=== PATIENT | female | born 1990 | race Caucasian/White ===

== ENCOUNTER 2017-05-08 12:25 | Outpatient (CLI) | payer MEDICAID ==
[~2017-05-08] VITALS: Ht 162.6 cm; Wt 80.3 kg
[2017-05-08 12:37] VITALS: BP 110/57; PULSE 70; Ht 162.6 cm; Wt 80.3 kg
[2017-05-08] MEDS ORDERED: PRENAT PO (12:38)
--- NOTE | 2017-05-08 13:21 | RADRPT ---
PROCEDURE: US OB biophysical profile. CLINICAL INDICATION: evaluation, bee sting TECHNIQUE: Multiple sonographic images of the pelvis were obtained. The images were reviewed on a PACS workstation. COMPARISON: No prior studies are available for comparison. FINDINGS: There is a single viable intrauterine gestation. Cardiac activity is present with 143 beats per min [place]. There is a vertex presentation. The placenta is anterior. There is no evidence of placental abruption. There is a normal amount of amniotic fluid with an MAKENZIE = 10.1 cm. Biophysical profile: movement 2/2 tone 2/2. breathing 2/2 MAKENZIE 2/2 Total 06/17 RPTAT: AA . IMPRESSION: Normal biophysical profile. Physician Marta Date Time Electronically viewed and signed by Physician Marta on 05/08/2017 13:21 /
== END 2017-05-08 13:37 | disposition home or self-care (01) ==
LOC: OBT 12:25 → L-D 12:25 → OBT 13:37
PROVIDERS: ATTEND Obstetrics & Gynecology
DX: O26.893 Other specified pregnancy related conditions, third trimester (principal); Z3A.39 39 weeks gestation of pregnancy
CPT/HCPCS: 76818; Z7500; G0463

== ENCOUNTER 2017-05-21 09:45 | Inpatient (IN) | payer MEDICAID ==
[~2017-05-21] VITALS: Ht 165.1 cm; Wt 80.3 kg
[~2017-05-21 09:45] MED LIST: OXYTOCIN 30 UNITS/LR 500 ML BAG IV ONE; PRENAT PO
[2017-05-21 10:19] VITALS: Ht 165.1 cm; Wt 80.3 kg
[2017-05-21 10:20] VITALS: BP 115/66; PULSE 64; RESP 18
[2017-05-21] MEDS ORDERED: CARBOPROST 250 MCG INJ IM PRN ×2 (10:30→17:30)
[2017-05-21] MEDS ORDERED: OXYTOCIN 30 UNITS/LR 500 ML IV PRN ×2 (10:30→17:30)
[2017-05-21] MEDS ORDERED: MISOPROSTOL 200 MCG TAB PR PRN ×2 (10:30→17:30)
[2017-05-21] MEDS ORDERED: OXYTOCIN 30 UNITS/LR 500 ML IV SCH (10:30)
[2017-05-21] MEDS ORDERED: CEFAZOLIN 2 GM/50 ML (PMX) 50 ML IV SCH (10:30)
[2017-05-21] MEDS ORDERED: METHYLERGONOVINE 0.2 MG INJ IM PRN ×2 (10:30→17:30)
[2017-05-21 10:31] LABS: ADD SCAN DIFF NO
[2017-05-21 10:34] LABS: BASOPHILS % 0.4 % (0.0-2.0); EOSINOPHILS # 0.1 10^3/ul (0.0-0.5); EOSINOPHILS % 0.9 % (0.0-7.0); HEMATOCRIT 39.6 % (37.0-47.0); HEMOGLOBIN 13.9 g/dl (12.0-16.0); LYMPHOCYTES # 1.6 10^3/ul (0.8-2.9); LYMPHOCYTES % 20.7 % (15.0-51.0); MEAN CORPUSCULAR HGB CONC 35.1 g/dl (32.0-37.0); MEAN CORPUSCULAR VOLUME 91.2 fl (82.0-101.0); MEAN PLATELET VOLUME 11.4 fl (7.4-10.4); MONOCYTE # 0.5 10^3/ul (0.3-0.9); MONOCYTES % 5.7 % (0.0-11.0); NEUTROPHIL # 5.7 10^3/ul (1.6-7.5); NEUTROPHILS % 71.7 % (39.0-77.0); PLATELET COUNT 201 10^3/UL (140-415); RED BLOOD COUNT 4.34 10^6/ul (4.20-5.40); RED CELL DISTRIBUTION WIDTH 12.6 % (11.5-14.5); WHITE BLOOD COUNT 7.9 10^3/ul (4.8-10.8)
[2017-05-21 10:54] LABS: INR 0.92; PROTIME 12.4 Sec (12.2-14.2)
[2017-05-21] MEDS: LACTATED RINGER'S 1,000 ML IV SCH ×3 (10:57→12:27)
[2017-05-21] MEDS ORDERED: CITRIC ACID/NA CITRATE 30 ML CUP ONE (11:18)
[2017-05-21] MEDS ORDERED: ONDANSETRON 4 MG INJ ONE (11:18)
[2017-05-21] MEDS ORDERED: ONDANSETRON 4 MG INJ IV ONE (11:30)
[2017-05-21] MEDS ORDERED: CITRIC ACID/NA CITRATE 30 ML CUP PO ONE (11:30)
[2017-05-21] MEDS ORDERED: PHENYLephrine (100 MCG/ML) 5ML SYG ONE ×2 (12:47→13:23)
[2017-05-21] MEDS ORDERED: KETOROLAC 30 MG INJ ONE (12:48)
[2017-05-21] MEDS ORDERED: morphine SULFATE/PF (10 MG/10 ML) INJ ONE (12:48)
[2017-05-21] MEDS ORDERED: OXYTOCIN 10 UNIT INJ ONE (12:48)
[2017-05-21] MEDS ORDERED: METOCLOPRAMIDE 10 MG INJ ONE (12:48)
[2017-05-21] MEDS ORDERED: DEXAMETHASONE 4 MG/ML 1 ML INJ ONE (12:48)
[2017-05-21 12:50] LABS: BARBITURATES Negative (NEGATIVE); BENZODIAZEPINES Negative (NEGATIVE); CANNABINOIDS Negative (NEGATIVE); COCAINE Negative (NEGATIVE); OPIATES Negative (NEGATIVE)
[2017-05-21] MEDS ORDERED: KETOROLAC 30 MG INJ IV PRN (13:30)
[2017-05-21] MEDS ORDERED: NALBUPHINE HCL (10 MG/1 ML) INJ IV PRN (13:30)
[2017-05-21] MEDS ORDERED: morphine 2 MG INJ IV PRN (13:30)
[2017-05-21] MEDS ORDERED: NALOXONE (0.4 MG/ML) INJ IV PRN (13:30)
[2017-05-21] MEDS ORDERED: DIPHENHYDRAMINE 50 MG INJ IV PRN (13:30)
[2017-05-21] MEDS ORDERED: morphine 4 MG/ML VIAL IV PRN (13:30)
[2017-05-21] MEDS ORDERED: ACETAMINOPHEN 500 MG TAB PO PRN (13:30)
[2017-05-21] MEDS ORDERED: TRIMETHOBENZAMIDE 100 MG/ML VIAL IM PRN (13:30)
[2017-05-21] MEDS ORDERED: HYDROmorphONE 1 MG/ML SYG IV PRN ×2 (13:30)
[2017-05-21] MEDS ORDERED: HYDROCODONE/APAP (5/325) TAB PO PRN (13:30)
[2017-05-21] MEDS ORDERED: ONDANSETRON 4 MG INJ IV PRN (13:30)
--- NOTE | 2017-05-21 14:10 | OPPN ---
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10 history of previous no other hospitalization for medical or surgical condition Review of system within Physical examination 5 feet 5, 173 pounds Temperature 98 pulse of 870 respiration blood pressure 121/70 Head ears nose and throat negative Neck supple no thyromegaly Lungs clear to P&A Heart normal sinus rhythm no murmur Abdomen fundal height 37 cm from symphysis pubis heart rate category 1 Pelvic exam i deferred Extremities no edema no varicosities Impression intrauterine at 39 history of previous patient declined vaginal delivery after complication of the operation including but not limited to bowel and bladder injury infection hemorrhage or hematoma and she is willing to go ahead with this procedure DANIELLA PORTER MD May 21, 2017 14:10
--- NOTE | 2017-05-21 14:19 | HP ---
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10 history of total of 2 with one previous section Allergies denies allergy to any known medication Social habit denies a smoking or drinking Review of system within normal Head ears nose and throat negative Neck supple no thyromegaly Lungs clear to P&A Heart normal sinus rhythm no murmur Breasts status compatible with state of the no abnormal palpable mass no nipple retraction no axillary adenopathy Abdomen fundal height 37 cm from symphysis pubis heart rate category Pelvic exam deferred Extremities no edema no varicosities Impression intrauterine at 39 weeks gestation history of previous section declined trial of labor for vaginal delivery post She is being prepared to undergo a repeat , patient is aware of complication of the surgery including but not limited to bowel and bladder injury infection hemorrhage and hematoma and she is willing to go ahead with this procedure Estimated Due Date: May 27, 2017 : 2 Para: 1 Care: Good Care Ultrasounds: Normal mid trimester US Obstetrical Complications: None Medical Complications: None Past Family/Social History * Past Medical, Surgical, Family and Obstetric Histories reviewed from chart. Rubella: immune RPR/VDRL: Negative GBS Status: Negative HBsAG: Negative OB Admission Exam Vital Signs Vital Signs Vital Signs Date Time Temp Pulse Resp B/P Pulse Ox O2 Delivery O2 Flow Rate FiO2 05/21/17 10:20 97.5 64 18 115/66 Room Air Last 72 hours Lab Results CBC & BMP 05/21/17 10:14 OB Assessment/Plan Reason for admission: other (Repeat ) DANIELLA PORTER MD May 21, 2017 14:19
--- NOTE | 2017-05-21 14:30 | OPR ---
Operative Report Planned Procedure Procedure date May 21, 2017 Procedure Description Under satisfactory spinal [] anesthesia, the patient was prepped and draped and placed in a supine position, tilted to the left. Pfannenstiel incision was made , carried through the subcutaneous tissue. Bleeders brought under control with electrocautery. Fascia incised to the length of the incision. Rectus muscles from the fascia, divided midline. Peritoneum exposed, entered through a transverse incision. Exploration of abdomen revealed gravid uterus at term normal-appearing tubes and ovaries. Bladder flap was developed. Transverse incision was made in the lower segment of the uterus. Amniotic sac ruptured. Clear [] amniotic fluid noted light baby boy was delivered from unengaged vertex presentation. [] Nasal oropharyngeal suction was performed. The baby was handed to the team for immediate attention. Patient received 20 units of Pitocin placenta was delivered manually intact. Uterine cavity cleaned with wet sponge and drainage established. Uterus closed in 2 layers using [] Monocryl #1 in continuous fashion. Peritoneal cavity irrigated with warm saline. Sponge, needle and instrument count reported to be correct. Abdominal peritoneum closed with 2-0 chromic catgut [] continuously. Rectus muscle approximated with [] interrupted 2-0 chromic catgut. Fascia closed with [ ] #1 PDS, and skin closed with nsorb. Estimated blood loss 6-700]mL. Urine bag contained [200]mL of clear urine patient tolerated procedure well and transferred to recovery room in good condition Post-Procedure Findings: Live Baby [], Apgars [] and [9], weight [], position occiput transverse [], [] presentation vertex Complications: None Pt Condition post procedure: stable Disposition: other (Recovery) Physician Certification I, the undersigned physician, hereby certify that I have discussed the procedure described in this consent form with this patient (or the patient's legal commissary representative), including: * The risk and benefits of the procedure; * Any adverse reactions that may reasonably be expected to occur; * Any alternative efficacious methods of treatment which may be medically viable ; * The potential problems that may occur during recuperation; * Potential for blood transfusion and associated risks/benefits; and * Any research or economic interest I may have regarding this treatment. I further certify that the patient/legally responsible person was encouraged to ask question and that all questions were answered. DANIELLA PORTER MD May 21, 2017 14:29
[2017-05-21 17:00] VITALS: BP 101/53; PULSE 59; RESP 16
[2017-05-21] MEDS ORDERED: CEFAZOLIN 1 GM/50 ML (PMX) 50 ML IVPB SCH ×2 (17:30→21:30)
[2017-05-21] MEDS ORDERED: OXYCODONE/ACETAMINOPHEN (5/325) TAB PO PRN (17:30)
[2017-05-21] MEDS ORDERED: LANOLIN 7 GM TUBE TOP PRN (17:30)
[2017-05-21] MEDS ORDERED: ACETAMINOPHEN/CODEINE #3 TAB PO PRN ×2 (17:30)
[2017-05-21] MEDS: IBUPROFEN 600 MG TAB PO SCH ×2 (18:00→23:56)
[2017-05-21] MEDS: OXYTOCIN 30 UNITS/LR 500 ML IV SCH ×2 (18:16→23:01)
[2017-05-21 20:00] VITALS: BP 97/56; PULSE 68; RESP 18
[2017-05-21] MEDS: SENNA/DOCUSATE NA (8.6MG/50MG) TAB PO SCH (21:00)
[2017-05-22] VITALS: BP 102/54; PULSE 58; RESP 20
--- NOTE | 2017-05-22 01:42 | OPPN ---
Date/Time of Note Date/Time of Note DATE: 05/22/17 TIME: 01:41 Post-Anesthesia Notes Post-Anesthesia Note Last documented vital signs Vital Signs Date Time Temp Pulse Resp B/P Pulse Ox O2 Delivery O2 Flow Rate FiO2 05/22/17 00:00 98.1 58 20 102/54 Room Air Activity: WNL Respiratory function: WNL Cardiovascular function: WNL Mental status: Baseline Pain reasonably controlled: Yes Hydration appropriate: Yes Nausea/Vomiting absent: Yes RYLIE RANDALL MD May 22, 2017 01:41
[2017-05-22] MEDS: OXYTOCIN 30 UNITS/LR 500 ML IV SCH (03:23)
[2017-05-22 04:00] VITALS: BP 99/54; PULSE 64; RESP 18
[2017-05-22] MEDS ORDERED: LACTATED RINGER'S 1,000 ML IV SCH (06:00)
[2017-05-22] MEDS: IBUPROFEN 600 MG TAB PO SCH ×4 (06:00→23:40)
[2017-05-22 07:50] VITALS: BP 99/51; PULSE 69; RESP 20
[2017-05-22 08:33] LABS: ADD SCAN DIFF NO
[2017-05-22 08:43] LABS: BASOPHILS % 0.1 % (0.0-2.0); EOSINOPHILS % 0.1 % (0.0-7.0); HEMATOCRIT 34.7 % (37.0-47.0); HEMOGLOBIN 11.7 g/dl (12.0-16.0); LYMPHOCYTES # 1.3 10^3/ul (0.8-2.9); MEAN CORPUSCULAR HEMOGLOBIN 31.4 pg (29.0-33.0); MEAN CORPUSCULAR HGB CONC 33.7 g/dl (32.0-37.0); MEAN PLATELET VOLUME 11.7 fl (7.4-10.4); MONOCYTE # 0.8 10^3/ul (0.3-0.9); MONOCYTES % 6.5 % (0.0-11.0); NEUTROPHIL # 9.8 10^3/ul (1.6-7.5); NEUTROPHILS % 81.6 % (39.0-77.0); PLATELET COUNT 206 10^3/UL (140-415); RED BLOOD COUNT 3.73 10^6/ul (4.20-5.40); RED CELL DISTRIBUTION WIDTH 12.8 % (11.5-14.5); WHITE BLOOD COUNT 12.1 10^3/ul (4.8-10.8)
[2017-05-22] MEDS: SENNA/DOCUSATE NA (8.6MG/50MG) TAB PO SCH ×2 (09:20→20:43)
[2017-05-22] MEDS: PRENATAL VITAMIN PO SCH (09:20)
[2017-05-22 11:57] VITALS: BP 90/51; PULSE 67; RESP 20
--- NOTE | 2017-05-22 12:32 | PN ---
Date/Time of Note Date/Time of Note DATE: 05/22/17 TIME: 12:31 OB Subjective Subjective Subjective Post repeat day 1 Afebrile vital signs stable abdomen soft bowel sounds present lochia moderate incision dry extremities ambulation encouraged Laboratory Tests Test 05/22/17 08:00 White Blood Count 12.110^3/ul Red Blood Count 3.7310^6/ul Hemoglobin 11.7g/dl Hematocrit 34.7% Mean Corpuscular Volume 93.0fl Mean Corpuscular Hemoglobin 31.4pg Mean Corpuscular Hemoglobin Concent 33.7g/dl Red Cell Distribution Width 12.8% Platelet Count 75796^3/UL Mean Platelet Volume 11.7fl Neutrophils % 81.6% Lymphocytes % 11.0% Monocytes % 6.5% Eosinophils % 0.1% Basophils % 0.1% Nucleated Red Blood Cells % 0.0/100WBC Neutrophils # 9.810^3/ul Lymphocytes # 1.310^3/ul Monocytes # 0.810^3/ul Eosinophils # 0.010^3/ul Basophils # 0.010^3/ul Nucleated Red Blood Cells # 0.010^3/ul Current Medications Medications (Trade) Dose Ordered Sig/Margarita Route PRN Reason Start Time Stop Time Status Last Admin Dose Admin Lactated Ringer's 1,000 ml @ 125 mls/hr Q8H IV 05/21/17 10:22 05/21/17 17:25 DC 05/21/17 12:27 Cefazolin Sodium/ Dextrose 50 ml @ 100 mls/hr ONCE IV 05/21/17 10:30 05/21/17 17:25 DC Oxytocin/Lactated Ringer's 500 ml @ 125 mls/hr ONCE IV 05/21/17 10:30 05/21/17 17:26 DC 05/21/17 14:17 Oxytocin/Lactated Ringer's 500 ml @ 0 mls/hr ONCE PRN IV For Hemorrhage Management 05/21/17 10:30 05/21/17 17:26 DC Methylergonovine Maleate (Methergine) 0.2 mg ONCE PRN IM VAGINAL BLEEDING 05/21/17 10:30 05/21/17 17:26 DC Carboprost Tromethamine (Hemabate) 250 mcg ONCE PRN IM VAGINAL BLEEDING 05/21/17 10:30 05/21/17 17:26 DC Misoprostol (Cytotec) 1,000 mcg ONCE PRN UT VAGINAL BLEEDING 05/21/17 10:30 05/21/17 17:26 DC Citric Acid/ Sodium Citrate (Bicitra) 30 ml STK-MED ONCE .ROUTE 05/21/17 11:18 05/21/17 11:19 DC Ondansetron HCl (Zofran Inj) 4 mg STK-MED ONCE .ROUTE 05/21/17 11:18 05/21/17 11:19 DC Ondansetron HCl (Zofran Inj) 4 mg pre-procedure ONCE IV 05/21/17 11:30 05/21/17 11:31 DC 05/21/17 11:28 Citric Acid/ Sodium Citrate (Bicitra) 30 ml PRE-OP ONCE PO 05/21/17 11:30 05/21/17 11:31 DC 05/21/17 11:28 Phenylephrine HCl (Hemant-Synephrine Inj Syg) 500 mcg STK-MED ONCE .ROUTE 05/21/17 12:47 05/21/17 12:48 DC Metoclopramide HCl (Reglan) 10 mg STK-MED ONCE .ROUTE 05/21/17 12:48 05/21/17 12:49 DC Oxytocin (Oxytocin) 10 units STK-MED ONCE .ROUTE 05/21/17 12:48 05/21/17 12:49 DC Morphine Sulfate (Duramorph) 10 mg STK-MED ONCE .ROUTE 05/21/17 12:48 05/21/17 12:49 DC Ketorolac Tromethamine (Toradol) 30 mg STK-MED ONCE .ROUTE 05/21/17 12:48 05/21/17 12:49 DC Dexamethasone (Decadron) 4 mg STK-MED ONCE .ROUTE 05/21/17 12:48 05/21/17 12:49 DC Hydromorphone HCl (Dilaudid) 0.2 mg Q2H PRN IV PAIN LEVEL 1-5 05/21/17 13:30 Hydromorphone HCl (Dilaudid) 0.4 mg Q2H PRN IV PAIN LEVEL 6-10 05/21/17 13:30 Morphine Sulfate (morphine) 2 mg Q2H PRN IV PAIN LEVEL 1-5 05/21/17 13:30 Morphine Sulfate (morphine) 4 mg Q2H PRN IV PAIN LEVEL 6-10 05/21/17 13:30 Ketorolac Tromethamine (Toradol) 30 mg Q6H PRN IV PAIN LEVEL 6-10 05/21/17 13:30 05/24/17 13:29 05/22/17 09:20 Acetaminophen (Tylenol Tab) 500 mg Q4H PRN PO PAIN LEVEL 1-3 05/21/17 13:30 Acetaminophen/ Hydrocodone Bitart (Inez (5/325)) 1 tab Q4H PRN PO PAIN LEVEL 4-6 05/21/17 13:30 Diphenhydramine HCl (Benadryl) 25 mg Q4H PRN IV PRURITUS 05/21/17 13:30 Nalbuphine HCl (Nubain) 10 mg Q4H PRN IV PRURITUS 05/21/17 13:30 05/21/17 17:26 DC Ondansetron HCl (Zofran Inj) 4 mg Q6H PRN IV NAUSEA AND/OR VOMITING 05/21/17 13:30 05/21/17 15:43 Trimethobenzamide HCl (Tigan) 200 mg Q6H PRN IM NAUSEA AND/OR VOMITING 05/21/17 13:30 05/21/17 17:26 DC Naloxone HCl (Narcan) 0.2 mg Q2M PRN IV FOR RESP RATE 8 OR LESS 05/21/17 13:30 Miscellaneous Information (* Miscellaneous Pharmacy Order) DURAMORPH: 0.2 MG SPI... GIVEN NEURAXIAL XX 05/21/17 13:30 05/21/17 17:26 DC Phenylephrine HCl (Hemant-Synephrine Inj Syg) 500 mcg STK-MED ONCE .ROUTE 05/21/17 13:23 05/21/17 13:24 DC Acetaminophen/ Codeine Phosphate (Tylenol No.3) 1 tab Q4H PRN PO PAIN LEVEL 4-6 05/21/17 17:30 Acetaminophen/ Codeine Phosphate (Tylenol No.3) 2 tab Q4H PRN PO PAIN LEVEL 7-10 05/21/17 17:30 Oxycodone/ Acetaminophen (Percocet (5/ 325)) 1 tab Q4H PRN PO PAIN LEVEL 4-6 05/21/17 17:30 Oxycodone/ Acetaminophen (Percocet (5/ 325)) 2 tab Q4H PRN PO PAIN LEVEL 7-10 05/21/17 17:30 Ibuprofen (Motrin) 600 mg Q6 PO 05/21/17 18:00 Simethicone (Mylicon) 160 mg Q8H PRN PO DISTENSION/GAS/BLOATING 05/21/17 17:30 Senna/Docusate Sodium (Senokot-S) 1 tab BID PO 05/21/17 21:00 05/22/17 09:20 Lanolin (Zba-S-Tdsyel) 1 applic BEDSIDE MEDICATION PRN TOP BEDSIDE FOR JOE TO NIPPLES 05/21/17 17:30 Diphtheria/ Tetanus/Acell Pertussis 0.5 ml 0.5 ml ONCE ONCE IM* 05/24/17 09:00 05/24/17 09:01 Oxytocin/Lactated Ringer's 500 ml @ 0 mls/hr ONCE PRN IV For Hemorrhage Management 05/21/17 17:30 Methylergonovine Maleate (Methergine) 0.2 mg ONCE PRN IM VAGINAL BLEEDING 05/21/17 17:30 Carboprost Tromethamine (Hemabate) 250 mcg ONCE PRN IM VAGINAL BLEEDING 05/21/17 17:30 Misoprostol 1000 mcg 1,000 mcg ONCE PRN [place] VAGINAL BLEEDING 05/21/17 17:30 Cefazolin Sodium 50 ml @ 100 mls/hr ONCE IVPB 05/21/17 17:30 05/21/17 17:59 Cancel Oxytocin/Lactated Ringer's 500 ml @ 125 mls/hr Q4H IV 05/21/17 17:16 05/22/17 03:23 Prenat Multivit/ [place]/Iron/Folic Ac 1 tab 1 tab DAILY PO 05/22/17 09:00 05/22/17 09:20 Cefazolin Sodium 50 ml @ 100 mls/hr ONCE IVPB 05/21/17 21:30 05/21/17 21:59 DC 05/21/17 21:07 Lactated Ringer's (Lr) 1,000 ml @ 125 mls/hr Q8H IV 05/22/17 06:00 05/22/17 14:00 05/22/17 05:59 DANIELLA PORTER MD May 22, 2017 12:32
[2017-05-22] MEDS: OXYCODONE/ACETAMINOPHEN (5/325) TAB PO PRN (14:01)
[2017-05-22 16:32] VITALS: BP 95/53; PULSE 70; RESP 20
[2017-05-22 20:00] VITALS: BP 96/61; PULSE 64; RESP 18
[2017-05-23] MEDS: OXYTOCIN 30 UNITS/LR 500 ML IV SCH ×6 (01:16→21:16)
[2017-05-23 04:00] VITALS: BP 98/48; PULSE 73; RESP 20
[2017-05-23] MEDS: IBUPROFEN 600 MG TAB PO SCH ×3 (05:38→23:47)
[2017-05-23 08:00] VITALS: BP 93/60; PULSE 65; RESP 18
[2017-05-23] MEDS: SENNA/DOCUSATE NA (8.6MG/50MG) TAB PO SCH ×2 (08:19→21:33)
[2017-05-23] MEDS: PRENATAL VITAMIN PO SCH (09:25)
--- NOTE | 2017-05-23 14:42 | PN ---
Date/Time of Note Date/Time of Note DATE: 05/23/17 TIME: 14:40 OB Subjective Subjective Subjective Post day 2 Vital signs stable afebrile abdomen soft uterus firm incision dry bowel sounds present no bowel movement enema recommended extremities normal DANIELLA PORTER MD May 23, 2017 14:42
[2017-05-23] MEDS ORDERED: NA PHOSPHATE/BIPHOS 133 ML ENEMA PR ONE (15:00)
[2017-05-23] MEDS: OXYCODONE/ACETAMINOPHEN (5/325) TAB PO PRN (15:11)
[2017-05-23 17:03] VITALS: BP 108/68; PULSE 80; RESP 20
[2017-05-23 19:55] VITALS: BP 99/66; PULSE 56; RESP 18
[2017-05-24] MEDS: OXYTOCIN 30 UNITS/LR 500 ML IV SCH ×2 (01:16→02:56)
[2017-05-24 03:40] VITALS: BP 142/50; PULSE 61; RESP 18
[2017-05-24] MEDS ORDERED: NA PHOSPHATE/BIPHOS 133 ML ENEMA PR ONE ×2 (05:00→12:30)
[2017-05-24 08:15] VITALS: BP 113/59; PULSE 65; RESP 14
[2017-05-24] MEDS: PRENATAL VITAMIN PO SCH (08:58)
[2017-05-24] MEDS: SENNA/DOCUSATE NA (8.6MG/50MG) TAB PO SCH (08:58)
[2017-05-24] MEDS ORDERED: DIPHTH/TET/ACEL PERTUSS (ADULT) 0.5 ML VIAL IM* ONE (09:00)
[2017-05-24] MEDS: IBUPROFEN 600 MG TAB PO SCH ×2 (12:00→12:06)
--- NOTE | 2017-05-24 12:23 | PD.PPDC ---
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
--- NOTE | 2017-05-24 12:32 | DS ---
Date/Time of Note Date/Time of Note DATE: 05/24/17 TIME: 12:27 Discharge Summary Admission/Discharge Info Admit Date/Time May 21, 2017 at 09:45 Discharge Date/Time May 24, 2017 at 1220 Discharge Diagnosis Post repeat date 3 Patient Condition: Good Procedures Repeat section Hx of Present Illness Term history of previous section Hospital Course Post day 3, her postoperative course in the hospital was satisfactory had no problem with bowel function and urination on the third postoperative day incision inspected found free of inflammation and infection she was discharged home with follow-up instructions and a prescription of analgesics recommended to make an appointment in 1 week to be seen at the clinic Home Meds Reported Medications Multivit/Min/Fol Ac/Iron/Pren* ( S*) 1 Tab Tab, 1 TAB PO DAILY, TAB 05/08/17 Follow-up Plan Appointment clinic in 1 week for post check Primary Care Provider Care Physician No Primary Time spent on discharge: < 30 minutes DANIELLA PORTER MD May 24, 2017 12:31
== END 2017-05-24 17:19 | disposition home or self-care (01) | DRG 766 ==
LOC: L-D 09:45 → PP1 16:50
PROVIDERS: ADMIT Obstetrics & Gynecology; ATTEND Obstetrics & Gynecology
PROC: 10D00Z1 Extraction of Products of Conception, Low, Open Approach (ICD-10-PCS; principal; 2017-05-21 12:30)
DX: O34.211 Maternal care for low transverse scar from previous cesarean delivery (principal); Z37.0 Single live birth; Z3A.39 39 weeks gestation of pregnancy
CPT/HCPCS: 80307; 85025; 85610; 85730; 86592; 86850; 86900; 86901; 87340; 90715; 99464; J0690; J1100; J1885; J2274; J2370; J2405; J2590; J2765; J7120